=== PATIENT | female | born 1985 | race American Indian/Alaskan Native ===

== ENCOUNTER 2021-04-28 18:19 | Emergency (ER) | payer OTHER ==
[2021-04-28 18:55] VITALS: BP 137/88
--- NOTE | 2021-04-28 20:04 | Emergency Department Report ---
ED General Adult HPI - General Chief complaint: Dyspnea/Respdistress Stated complaint: FEELING WEAK Time Seen by Provider: 04/28/21 19:57 Source: patient Mode of arrival: Ambulatory Limitations: No Limitations - History of Present Illness Initial comments: 35-year-old female patient with history of tobacco use presents to the emergency department with complaints of subjective fever, cough, chills, and myalgias for 2 days. Patient was recently exposed to another individual exhibiting similar symptoms. Patient has not received her COVID-19 vaccination series. No current steroid or antibiotic use. No recent travel. No known history of chronic lung disease. Denies wheezing, hemoptysis, shortness of breath, chest pain, abdominal pain, neck stiffness, syncope. Denies all other complaints at this time. - Related Data Home Medications Medication Instructions Recorded Confirmed Last Taken Multivitamin [Multi Vitamin Daily] 1 tab PO DAILY 12/25/14 01/07/15 01/05/15 08:00 Previous Rx's Medication Instructions Recorded Last Taken Type HYDROcodone/APAP 5-325 [Silvis 1 each PO Q6HR PRN #20 tablet 01/07/15 Unknown Rx 5/325] Ibuprofen [Motrin Ib 200 MG tab] 600 mg PO Q6HR #30 tablet 01/07/15 Unknown Rx Brompheniramine/Pseudoephed/Dm 10 ml PO Q4H #1 bottle 04/28/21 Unknown Rx [Bromfed Dm Cough Syrup] Allergies Allergy/AdvReac Type Severity Reaction Status Date / Time No Known Allergies Allergy Unverified 12/25/14 13:02 ED Review of Systems ROS: Stated complaint: FEELING WEAK Other details as noted in HPI Other: GENERAL: Positive for fatigue and chills. ENT: Negative for ear pain, difficulty hearing, sore throat, nasal congestion, epistaxis. CARDIOVASCULAR: Negative for chest pain, palpitations, lower extremity swelling. PULMONARY: Positive for cough. GASTROINTESTINAL: Negative for abdominal pain, nausea, vomiting, diarrhea, constipation. MUSCULOSKELETAL: Positive for myalgias. NEUROLOGICAL: Negative for headache, seizure, syncope, paresthesias, weakness. INTEGUMENTARY: Negative for erythema, rash, diaphoresis, laceration, ecchymosis. HEMATOLOGICAL: Negative for hemoptysis, hematemesis, hematochezia, hematuria. PSYCHIATRIC: Negative for hallucinations, suicidal ideation, homicidal ideation, anxiety, depression. ED Past Medical Hx - Past Medical History Previous Medical History?: Yes Hx Hypertension: Yes (on a diuretic but recently came off. ) Hx Heart Attack/AMI: No (>4METs) Hx Liver Disease: No Hx Renal Disease: No Hx Sickle Cell Disease: No Hx Seizures: No Hx Asthma: No Hx COPD: No - Surgical History Past Surgical History?: Yes Additional Surgical History: tonsilectomy - Social History Smoking Status: Current Every Day Smoker - Medications Home Medications: Home Medications Medication Instructions Recorded Confirmed Last Taken Type Multivitamin [Multi Vitamin Daily] 1 tab PO DAILY 12/25/14 01/07/15 01/05/15 08:00 History HYDROcodone/APAP 5-325 [Silvis 1 each PO Q6HR PRN #20 tablet 01/07/15 Unknown Rx 5/325] Ibuprofen [Motrin Ib 200 MG tab] 600 mg PO Q6HR #30 tablet 01/07/15 Unknown Rx Brompheniramine/Pseudoephed/Dm 10 ml PO Q4H #1 bottle 04/28/21 Unknown Rx [Bromfed Dm Cough Syrup] ED Physical Exam - General Limitations: No Limitations - Other Other exam information: General: Awake and alert. No acute distress. Head: Atraumatic, normocephalic. Eyes: EOMI. Pupils are equal and round. Normal sclera and conjunctiva. ENT: Nasal congestion noted. Oral mucosa is moist. Normal pharyngeal exam. Neck: Supple. No lymphadenopathy. Pulmonary: No respiratory distress. Clear to auscultation bilaterally. Cardiac: Regular rate and rhythm. Pulses are palpable and equal bilaterally. No lower extremity cyanosis or edema. Skin: Warm and dry. No rashes. Abdomen: Soft, non-tender, non-protuberant. No guarding, rigidity, or rebound. Bowel sounds are normal. No organomegaly or masses noted. Back: Normal alignment. No CVA tenderness. Extremities: Symmetrical. Full range of motion intact. Neurological: Alert and oriented, appropriately interactive, no focal deficits. Psych: Cooperative. Appropriate mood and affect. Speech is evenly metered. Thoughts are logically construed. ED Course Vital Signs 04/28/21 18:54 Temperature 99.0 F Pulse Rate 81 Respiratory 18 Rate Blood Pressure 137/88 O2 Sat by Pulse 98 Oximetry ED Medical Decision Making - Medical Decision Making Differential diagnosis including but not limited to: pneumonia, influenza, pertussis, pleural effusion, viral upper respiratory infection On reevaluation, patient remains stable. She is afebrile, no hypoxia, no respiratory distress, well-hydrated. Chest x-ray without acute process. COVID- 19 testing is currently unavailable at this facility. History and exam findings suggestive of viral upper respiratory infection; no clinical indication for further diagnostic work-up on an emergent basis at this time. Patient will be discharged home with appropriate symptomatic treatment and advised to follow-up with primary care provider this week for reevaluation. Patient expressed understanding and is agreeable to plan of care. Disease transmission precautions discussed. Strict return precautions provided. Repeat exam is unremarkable and benign. History, exam, diagnostic testing, and current condition do not suggest worrisome pathology to warrant further testing, continued ED treatment, admission, or surgical evaluation at this point. Given the low probability of a significant medical illness, it would be more likely to result in harm than benefit to perform further testing at this stage. Discussed findings, presumptive diagnosis, need for follow-up and specific signs/symptoms that should prompt immediate return to the emergency department. Instructions were explained in detail to the patient in addition to giving written discharge information. Patient expressed understanding and was given the opportunity to ask questions, all of which were satisfactorily answered prior to discharge home. Critical care attestation.: If time is entered above; I have spent that time in minutes in the direct care of this critically ill patient, excluding procedure time. ED Disposition Clinical Impression: Viral upper respiratory tract infection with cough Disposition: DC-01 TO HOME OR SELFCARE Is pt being admited?: No Does the pt Need Aspirin: No Condition: Stable Instructions: Viral Respiratory Infection, Atmg-Bn-Vdrh Additional Instructions: Take Tylenol every 4 hours and Motrin every 8 hours as needed for pain/fever. Take Bromfed as directed for cough/cold symptoms. Honey is an excellent natural cough suppressant. Exposure to warm humidified air may help relieve congestion. Rest. Drink plenty fluids. Wash hands frequently to prevent disease transmission. Do not share food or drinks with others. Follow-up with primary care provider this week. Call tomorrow to schedule an appointment. Return to the emergency department immediately for new or worsening symptoms. Prescriptions: Brompheniramine/Pseudoephed/Dm [Bromfed Dm Cough Syrup] 10 ml PO Q4H #1 bottle Referrals: DEXTER FREEDMAN MD [Staff Physician] - 3-5 Days Forms: Work/School Release Form(ED) Time of Disposition: 21:07
--- NOTE | 2021-04-28 20:58 | XRay Report ---
CHEST 1 VIEW 04/28/2021 7:50 PM INDICATION / CLINICAL INFORMATION: cough/chills -- hx tobacco use. COMPARISON: None available. FINDINGS: SUPPORT DEVICES: None. HEART / MEDIASTINUM: No significant abnormality. LUNGS / PLEURA: No significant pulmonary or pleural abnormality. No pneumothorax. ADDITIONAL FINDINGS: No significant additional findings. IMPRESSION: No acute abnormality. Signer Name: Ganga Khan MD Signed: 04/28/2021 8:54 PM Workstation Name: [id number]
== END 2021-04-28 21:40 | disposition home or self-care (01) ==
LOC: ED 18:19
DX: J06.9 Acute upper respiratory infection, unspecified (principal); I10 Essential (primary) hypertension; F17.200 Nicotine dependence, unspecified, uncomplicated; Z79.899 Other long term (current) drug therapy; Z98.890 Other specified postprocedural states
CPT/HCPCS: 71045